=== PATIENT | female | born 1945 | race Caucasian/White ===

== ENCOUNTER 2018-11-25 10:08 | Outpatient (CLI) | payer OTHER ==
[~2018-11-25 10:08] MED LIST: ULTRACET PO
== END 2018-11-25 10:18 | disposition home or self-care (01) ==
LOC: SONOGRAMA 10:08
DX: E04.2 Nontoxic multinodular goiter (principal)

== ENCOUNTER → 2020-07-05 | Outpatient (CLI) | payer OTHER | END | disposition home or self-care (01) | LOC: SONOGRAMA 10:52 | PROVIDERS: ATTEND Pathology Anatomic Pathology & Clinical Pathology | DX: E04.2 Nontoxic multinodular goiter (principal) ==